=== PATIENT | male | born 1955 | race Caucasian/White ===

== ENCOUNTER 2017-04-19 15:53 | Emergency (ER) | payer OTHER ==
[2017-04-19 16:06] VITALS: BP 156/83
== END 2017-04-19 16:43 | disposition other institution (70) ==
LOC: ED 15:53
DX: Z02.89 Encounter for other administrative examinations (principal); I10 Essential (primary) hypertension; E11.9 Type 2 diabetes mellitus without complications; Z79.4 Long term (current) use of insulin; Z99.2 Dependence on renal dialysis